=== PATIENT | male | born 1950 | race Caucasian/White ===

== ENCOUNTER 2020-04-26 19:51 | Inpatient (IN) | payer OTHER ==
[~2020-04-26] VITALS: Ht 170.2 cm; Wt 96.2 kg
[2020-04-28] MEDS ORDERED: DEXAMETHASONE4 MG (08:16)
[2020-04-28] MEDS ORDERED: LEVOTHYROXINE50 MCG (08:16)
[2020-05-05] MEDS ORDERED: HYZAAR 50-12.51 EACH PO (22:29)
[2020-05-05] MEDS ORDERED: NEURONTIN600 M1 PO (22:30)
[2020-05-05] MEDS ORDERED: SYNTHROID50 MCG PO (22:31)
== END 2020-05-09 09:09 | disposition expired | DRG 207 ==
LOC: ER 19:51 → ICU 04-27 11:54 → MEDJ 04-27 11:54 → ICU 04-30 22:11
PROVIDERS: ADMIT Internal Medicine; ATTEND Internal Medicine
PROC: 8E0ZXY6 Isolation (ICD-10-PCS; 2020-04-27)
PROC: 4A033R1 Measurement of Arterial Saturation, Peripheral, Percutaneous Approach (ICD-10-PCS; 2020-04-27)
PROC: XW033E5 Introduction of Remdesivir Anti-infective into Peripheral Vein, Percutaneous Approach, New Technology Group 5 (ICD-10-PCS; 2020-04-27)
PROC: 5A09557 Assistance with Respiratory Ventilation, Greater than 96 Consecutive Hours, Continuous Positive Airway Pressure (ICD-10-PCS; 2020-04-27)
PROC: XW0DXM6 Introduction of Baricitinib into Mouth and Pharynx, External Approach, New Technology Group 6 (ICD-10-PCS; 2020-04-28)
PROC: 5A1955Z Respiratory Ventilation, Greater than 96 Consecutive Hours (ICD-10-PCS; principal; 2020-04-30)
PROC: 0BH17EZ Insertion of Endotracheal Airway into Trachea, Via Natural or Artificial Opening (ICD-10-PCS; 2020-04-30)
PROC: 02HV33Z Insertion of Infusion Device into Superior Vena Cava, Percutaneous Approach (ICD-10-PCS; 2020-05-01)
DX: U07.1 COVID-19 (principal); J12.82 Pneumonia due to coronavirus disease 2019; J96.01 Acute respiratory failure with hypoxia; J15.6 Pneumonia due to other Gram-negative bacteria; B37.1 Pulmonary candidiasis; N17.8 Other acute kidney failure; N39.0 Urinary tract infection, site not specified; I10 Essential (primary) hypertension; K76.89 Other specified diseases of liver; E11.42 Type 2 diabetes mellitus with diabetic polyneuropathy; E03.9 Hypothyroidism, unspecified; E86.0 Dehydration; E11.65 Type 2 diabetes mellitus with hyperglycemia; F32.89 Other specified depressive episodes; R43.0 Anosmia; Z20.822 Contact with and (suspected) exposure to COVID-19; E66.8 Other obesity; D69.6 Thrombocytopenia, unspecified; K74.69 Other cirrhosis of liver; R79.82 Elevated C-reactive protein (CRP); R00.1 Bradycardia, unspecified; Z79.4 Long term (current) use of insulin; B96.4 Proteus (mirabilis) (morganii) as the cause of diseases classified elsewhere